=== PATIENT | male | born 1990 | race Two or more races ===

== ENCOUNTER 2025-09-04 22:17 | Inpatient (IN) | payer OTHER ==
[~2025-09-04] VITALS: Ht 180.3 cm; Wt 88.0 kg
[2025-09-04 22:20] VITALS: RESP 32; O2SAT 92
--- NOTE | 2025-09-04 22:23 | ED.PDOC ---
SOB-HPI HPI Comments 35-year-old male who came to ER via EMS for shortness of breath. Patient does have history of asthma. Patient recently exposed to family member with rhinovirus. About a hour ago, patient started having shortness of breath and wheezing. Patient had 4 breathing treatments at home, and paramedics gave him another treatment while in with the emergency room. Saturating 72% on room air on scene. After 5 breathing treatments, patient is saturating 93% at 15 L/min Chief Complaint: Shortness of breath Time Seen by MD: 22:23 Reviewed notes: Video Tape Editor Notes Information Source: Patient, Emergency Med Personnel Mode of Arrival: EMS Severity: Moderate Past Medical History PAST MEDICAL HISTORY: Asthma Surgical History: Denies all surgeries Family History Family History: Reviewed,noncontributory to illness Social History Smoker: Non-Smoker Alcohol: Denies ETOH Use Drugs: Denies Drug Use Lives In: Home Constitutional: denies: chills, diaphoresis, fatigue, fever, malaise, sweats, weakness, others EENTM: denies: blurred vision, double vision, ear bleeding, ear discharge, ear drainage, ear pain, ear ringing, eye pain, eye redness, hearing loss, mouth pain, mouth swelling, nasal discharge, nose bleeding, nose congestion, nose pain, photophobia, tearing, throat pain, throat swelling, voice changes, others Respiratory: reports: SOB at rest, shortness of breath, wheezing; denies: cough, hemoptysis, orthopnea, SOB with excertion, stridor, others Cardiovascular: denies: chest pain, dizzy spells, diaphoresis, Dyspnea on exertion, edema, irregular heart beat, left arm pain, lightheadedness, palpitations, PND, syncope, others Gastrointestinal: denies: abdomen distended, abdominal pain, blood streaked bowels, constipated, diarrhea, dysphagia, difficulty swallowing, hematemesis, melena, nausea, poor appetite, poor fluid intake, rectal bleeding, rectal pain, vomiting, others Genitourinary: denies: burning, dysuria, flank pain, frequency, hematuria, incontinence, penile discharge, penile sore, pain, testicle pain, testicle swelling, urgency, others Neurological: denies: dizziness, fainting, headache, left sided numbness, left sided weakness, numbness, paresthesia, pre-existing deficit, right sided numbness, right sided weakness, seizure, speech problems, tingling, tremors, weakness, others Musculoskeletal: denies: back pain, gout, joint pain, joint swelling, muscle pain, muscle stiffness, neck pain, others Integumetry: denies: bruises, change in color, change in hair/nails, dryness, laceration, lesions, lumps, rash, wounds, others Allergic/Immunocompromised: denies: Difficulty Healing, Frequent Infections, Hives, Itching, others Hematologic/Lymphatic: denies: anemia, blood clots, easy bleeding, easy bruising, swollen glands, others Endocrine: denies: excessive hunger, excessive sweating, excessive thirst, excessive urination, flushing, intolerance to cold, intolerance to heat, unexplained weight gain, unexplained weight loss, others Psychiatric: denies: anxiety, bipolar disorder, depression, hopeless, panic disorder, schizophrenia, sleepless, suicidal, others Physical Exam General Appearance: Moderate Distress, Normal HEENT: Normal ENT Inspection, Pharynx Normal, TMs Normal Neck: Full Range of Motion, Non-Tender, Normal, Normal Inspection Respiratory: Accessory Muscle Use, Chest Non-Tender, Respiratory Distress, Wheezing Cardiovascular: No Edema, No JVD, No Murmur, No Gallop, Normal Peripheral Pulses, Regular Rate/Rhythm Breast Exam: Deferred Gastrointestinal: No Organomegaly, Non Tender, No Pulsatile Mass, Normal Bowel Sounds, Soft Genitalia: Deferred Pelvic: Deferred Rectal: Deferred Extremities: No calf tenderness, Normal capillary refill, Normal inspection, Normal range of motion, Non-tender, No pedal edema Musculoskeletal : Apperance: Normal Neurologic: Alert, bull rider II-XII nml as Tested, No Motor Deficits, Normal Affect, Normal Mood, No Sensory Deficits Cerebellar Function: Normal Reflexes: Normal Skin: Dry, Normal Color, Warm Lymphatic: No Adenopathy Was a procedure done? Was a procedure done?: No Differential Dx Differential Diagnosis: Anxiety, Asthma, Bronchitis, Pneumonia, Respiratory Distress, URI X-Ray, Labs, Meds, VS Vital Signs Date Time Temp Pulse Resp B/P (MAP) Pulse Ox O2 Delivery O2 Flow Rate FiO2 09/05/25 00:26 111 19 135/75 (95) 96 09/04/25 23:47 98.7 09/04/25 23:00 98.7 122 24 135/75 (95) 94 98.7 09/04/25 22:47 100.4 09/04/25 22:29 28 100 Non-Rebreather 15 N/A 09/04/25 22:20 32 92 Non-Rebreather 15 N/A 09/04/25 22:20 100.4 74 23 129/81 86 100.4 09/04/25 22:18 100.4 118 32 129/81 (97) 99 100.4 Lab Test 09/05/25 00:40 09/04/25 23:25 09/04/25 22:54 09/04/25 22:53 Range/Units Lactic Acid Level Pending Troponin I High Sensitivity 11 </=54 ng/L Influenza Type A Antigen Negative Negative Influenza Type B Antigen Negative Negative SARS-CoV-2 Antigen (Rapid) Negative NEGATIVE Test 09/04/25 22:36 09/04/25 22:22 Range/Units Blood Gas Specimen Type Venous Blood Gas Sample Site Vbg - n/a Blood Gas Patient Temperature 37.0 Arterial Blood Date Drawn [id number] Marcelo Test N/a Venous Blood pH 7.343 7.320-7.430 Venous Blood pCO2 at Patient Temp 50.0 38.0-54.0 mmHg Venous Blood pO2 at Patient Temp 53.2 H 23.0-48.0 mmHg Venous Blood HCO3 26.6 22.0-29.0 mmol/L Venous Blood Base Excess 0.1 -2.0-3.0 mmol/L Blood Gas Liter Flow 15.00 Blood Gas Modality Mask - nrb FiO2 % 100.0 White Blood Count 35.4 *H 4.4-10.8 10^3/uL Red Blood Count 4.91 4.5-5.90 10^6/uL Hemoglobin 15.3 13.5-17.5 g/dL Hematocrit 45.1 41.0-53.0 % Mean Corpuscular Volume 91.8 80.0-100.0 fL Mean Corpuscular Hemoglobin 31.2 28.0-32.0 pg Mean Corpuscular Hemoglobin Concent 34.0 32.0-36.0 g/dL Red Cell Distribution Width 13.6 11.8-14.3 % Platelet Count 375 140-450 10^3/uL Mean Platelet Volume 7.5 6.9-10.8 fL Neutrophils (%) (Auto) 37.0-80.0 % Lymphocytes (%) (Auto) 10.0-50.0 % Monocytes (%) (Auto) 0.0-12.0 % Basophils (%) (Auto) 0.0-2.0 % Neutrophils # (Auto) 1.6-8.6 10 ^3/uL Lymphocytes # (Auto) 0.4-5.4 10 ^3/uL Monocytes # (Auto) 0-1.3 10 ^3/uL Differential Total Cells Counted 100.0 100 Neutrophils % (Manual) 24 L 37.0-80.0 Band Neutrophils % (Manual) 0 Lymphocytes % (Manual) 7 L 10.0-50.0 Monocytes % (Manual) 4 0-12 Eosinophils % (Manual) 63 H 0-7 Basophils % (Manual) 0 0.0-2.0 Metamyelocytes % (manual) 0 Myelocytes % (Manual) 0 Promyelocytes % (Manual) 0 Blast Cells % (Manual) 0 Reactive Lymphocytes 2 Platelet Estimate Adequate Sodium Level 141 136-145 mmol/L Potassium Level 3.7 3.5-5.1 mmol/L Chloride Level 103 98-107 mmol/L Carbon Dioxide Level 27 20-31 mmol/L Anion Gap 11 5-15 Blood Urea Nitrogen 10 9-23 mg/dL Creatinine 1.01 0.700-1.30 mg/dL Glomerular Filtration Rate Calc 100 >90 mL/min BUN/Creatinine Ratio 9.9 L 10.0-20.0 Serum Glucose 123 H 74-106 mg/dL Lactic Acid Level 2.1 *H 0.4-2.0 mmol/L Calcium Level 8.8 8.7-10.4 mg/dL Magnesium Level 2.0 1.6-2.6 mg/dL Total Bilirubin 0.3 0.2-1.0 mg/dL Aspartate Amino Transferase (AST) 27 13-40 U/L Alanine Aminotransferase (ALT) 25 7-40 U/L Alkaline Phosphatase 73 46-116 U/L Troponin I High Sensitivity 7 </=54 ng/L B-Type Natriuretic Peptide 10.40 0-100 pg/mL Total Protein 7.1 5.7-8.2 g/dL Albumin 4.2 3.2-4.8 g/dL Current Medications Medications (Trade) Dose Ordered Sig/Brook Route Start Time Stop Time Status Last Admin Sodium Chloride 1,000 ml @ 1,000 mls/hr Q1H ONCE IV 09/04/25 22:30 09/04/25 23:29 DC 09/04/25 22:24 Methylprednisolone Sodium Succinate (Solu Medrol) 125 mg ONCE ONCE IV 09/04/25 22:30 09/04/25 22:31 DC 09/04/25 22:24 Magnesium Sulfate/ Dextrose 100 ml @ 100 mls/hr Q1H IV 09/04/25 22:30 09/05/25 00:29 DC 09/04/25 22:46 Albuterol (Ventolin Medneb) 5 mg ONCE ONCE NEB 09/04/25 22:30 09/04/25 22:31 DC 09/04/25 22:26 Acetaminophen (Tylenol Tablet) 650 mg ONCE ONCE PO 09/04/25 22:45 09/04/25 22:46 DC 09/04/25 22:47 Sodium Chloride 2,250 ml @ 2,250 mls/hr ONCE ONCE IV 09/04/25 23:15 09/05/25 00:14 DC 09/04/25 23:26 Ceftriaxone Sodium 50 ml @ 100 mls/hr ONCE ONCE IV 09/04/25 23:15 09/04/25 23:44 DC 09/04/25 23:21 Azithromycin 250 ml @ 125 mls/hr ONCE ONCE IV 09/04/25 23:15 09/05/25 01:14 09/04/25 23:53 Time of 1ST Reevaluation: 22:19 Reevaluation 1ST: Unchanged Patient Education/Counseling: Diagnosis, Treatment Family Education/Counseling: No Family Present SEPSIS Sepsis Screen Physician Orders Chest Portable (09/04/25 22:32) Electrocardigram (09/04/25 22:18) Troponin-I Hs (09/05/25 01:18) Blood Culture (09/04/25 22:18) Venous Blood Gas (09/04/25 22:18) Azithromycin 500mg/250ml (Zithromax 500m (09/04/25 23:15) Vital Signs Date Time Temp Pulse Resp B/P (MAP) Pulse Ox O2 Delivery O2 Flow Rate FiO2 09/05/25 00:26 111 19 135/75 (95) 96 09/04/25 23:47 98.7 09/04/25 23:00 98.7 122 24 135/75 (95) 94 98.7 09/04/25 22:47 100.4 09/04/25 22:29 28 100 Non-Rebreather 15 N/A 09/04/25 22:20 32 92 Non-Rebreather 15 N/A 09/04/25 22:20 100.4 74 23 129/81 86 100.4 09/04/25 22:18 100.4 118 32 129/81 (97) 99 100.4 Laboratory Tests Test 09/04/25 22:22 09/05/25 00:40 Lactic Acid Level 2.1 mmol/L (0.4-2.0) *H Pending White Blood Count 35.4 10^3/uL (4.4-10.8) *H Medications Medications Dose Ordered Sig/Brook Route Start Time Stop Time Status Last Admin Dose Admin Acetaminophen 650 mg ONCE ONCE PO 09/04/25 22:45 09/04/25 22:46 DC 09/04/25 22:47 Albuterol 5 mg ONCE ONCE NEB 09/04/25 22:30 09/04/25 22:31 DC 09/04/25 22:26 Azithromycin 250 ml @ 125 mls/hr ONCE ONCE IV 09/04/25 23:15 09/05/25 01:14 09/04/25 23:53 Ceftriaxone Sodium 50 ml @ 100 mls/hr ONCE ONCE IV 09/04/25 23:15 09/04/25 23:44 DC 09/04/25 23:21 Magnesium Sulfate/ Dextrose 100 ml @ 100 mls/hr Q1H IV 09/04/25 22:30 09/05/25 00:29 DC 09/04/25 22:46 Methylprednisolone Sodium Succinate 125 mg ONCE ONCE IV 09/04/25 22:30 09/04/25 22:31 DC 09/04/25 22:24 Sodium Chloride 1,000 ml @ 1,000 mls/hr Q1H ONCE IV 09/04/25 22:30 09/04/25 23:29 DC 09/04/25 22:24 Sodium Chloride 2,250 ml @ 2,250 mls/hr ONCE ONCE IV 09/04/25 23:15 09/05/25 00:14 DC 09/04/25 23:26 Departure 1 Departure Time of Disposition: 01:06 Impression: Primary Impression: Bilateral pneumonia Additional Impressions: Respiratory failure with hypoxia Bronchospasm Disposition: ADMITTED INPATIENT Admit to: Med Surg Condition: Guarded Comments 35 yo male with severe SOB. was hypoxic on room air. wheezing bilaterally. given breathing treatments, magnesium, and solumedrol. WBC high 35. CXR shows bilateral pneumonia. patient given IV rocephin and azithromycin antibiotics. will need admission for supportive care and further workup Critical Care Note Critical Care Time?: Yes (35 min-critical care time only) Critical care comment: Shortness of breath Stability Stability form required: No Heart Score Heart Score: Heart Score Response (Comments) Value History N/A 0 EKG N/A 0 Age N/A 0 Risk Factors N/A 0 Troponin N/A 0 Total 0 I personally scribed for KIMMIE CUEVA MD ([email or web address]) on 09/04/25 at 22:23. Electronically submitted by Cristóbal Parekh ([email or web address]). KIMMIE CUEVA MD Sep 04, 2025 22:23
[2025-09-04] MEDS: methylPREDNISolone SOD SUCC 125 MG/2 ML VL IV ONE (22:24)
[2025-09-04] MEDS: SODIUM CHLORIDE 0.9% 1,000 ML IV ONE (22:24)
[2025-09-04] MEDS: ALBUTEROL SULF 2.5 MG/0.5ML(0.5%) NEB SOLN NEB ONE (22:26)
[2025-09-04] MEDS: MAGNESIUM SULFATE 1GM/100ML 100 ML IV SCH (22:34)
[2025-09-04] MEDS: ACETAMINOPHEN 325 MG TAB PO ONE (22:47)
[2025-09-04 22:50] LABS: Hematocrit 45.1 % (41.0-53.0); Hemoglobin 15.3 g/dL (13.5-17.5); Mean Corpuscular Hemoglobin 31.2 pg (28.0-32.0); Mean Corpuscular Volume 91.8 fL (80.0-100.0)
[2025-09-04 22:59] LABS: Alanine Aminotransferase 25 U/L (7-40); Alkaline Phosphatase 73 U/L (46-116); Anion Gap 11 (5-15); BUN/Creatinine Ratio 9.9 (10.0-20.0); Blood Urea Nitrogen 10 mg/dL (9-23); Calcium 8.8 mg/dL (8.7-10.4); Carbon Dioxide 27 mmol/L (20-31); Chloride 103 mmol/L (98-107); Magnesium 2.0 mg/dL (1.6-2.6); Potassium 3.7 mmol/L (3.5-5.1); Sodium 141 mmol/L (136-145); Total Protein 7.1 g/dL (5.7-8.2)
[2025-09-04 23:00] LABS: Albumin 4.2 g/dL (3.2-4.8); Bilirubin, Total 0.3 mg/dL (0.2-1.0)
[2025-09-04 23:01] LABS: Glucose 123 mg/dL (74-106)
[2025-09-04 23:02] LABS: Lactic Acid w/Reflex 2.1 mmol/L (0.4-2.0)
[2025-09-04] MEDS: SODIUM CHLORIDE 0.9% 2,250 ML IV ONE (23:26)
[2025-09-04 23:28] LABS: Total Cells Counted 100.0 (100)
[2025-09-04 23:30] LABS: COVID19 ANTIGEN SOFIA FIA NEGATIVE (NEGATIVE)
[2025-09-04] MEDS: AZITHROMYCIN 500MG/250ML 250 ML IV ONE (23:53)
[2025-09-04] MEDS: IPRATROPIUM BROM 0.5 MG/2.5ML INH SOL NEB ONE (23:54)
[2025-09-05] VITALS (20 sets, daily range): BP systolic 104–135; BP diastolic 62–80; PULSE 67–111; RESP 14–20; TEMP 97–98.7; O2SAT 91–99
[2025-09-05 01:18] LABS: Urine Protein, UAD Negative (Negative)
[2025-09-05] MEDS ORDERED: DOCUSATE SOD 100 MG CAP PO PRN (01:30)
[2025-09-05] MEDS ORDERED: NITROGLYCERIN 0.4 MG SL TAB SL PRN (01:30)
[2025-09-05] MEDS ORDERED: HYDROcodone-ACET 5/325MG TAB PO PRN (01:30)
[2025-09-05] MEDS ORDERED: MORPHINE SULFATE INJ 2 MG/ml SYRG IV PRN ×2 (01:30)
[2025-09-05] MEDS ORDERED: ACETAMINOPHEN 325 MG TAB PO PRN (01:30)
[2025-09-05] MEDS ORDERED: ONDANSETRON HCL 4 MG/2 ML VIAL IV PRN (01:30)
--- NOTE | 2025-09-05 01:43 | DVHHPRES ---
History of Present Illness Resident Creating Document: BRANDAN GRIMES RESIDENT History of Present Illness JIMMIE COLON, A 35-year-old male with a history of asthma presented to the ED via EMS for acute shortness of breath and wheezing after recent rhinovirus exposure, unrelieved by multiple home, chills, thick yellow sputum, and EMS breathing treatments, initially hypoxic at 72% on room air and now saturating 93% on 15L/min oxygen. Patient was found to have acute hypoxic respiratory failure, status asthmaticus and likely community-acquired pneumonia and presented with severe sepsis with tachycardia tachypnea and fever. Last exacerbation and hospitalization years aback when he was in teenage. PMHx: Asthma , atopy PSHx: Denies Family history: noncontributory to illness although family history of asthma and atopy present Social history: The patient is a non-smoker, denies alcohol and drug use, and lives at home. Marijuana smoker. Home Meds: None Review of Systems Constitutional: Yes: Chills, Malaise; No: Fever, Sweats, Weakness, Other Eyes: No: Pain, Vision change, Conjunctivae inflammation, Eyelid inflammation, Other, Redness ENT: No: Ear pain, Ear discharge, Nose pain, Nose discharge, Nose congestion, Mouth pain, Mouth swelling, Throat pain, Throat swelling, Other Respiratory: Cough, Shortness of breath, SOB with excertion, Wheezing, Sputum, Wheezing; No: Dry, Hemoptysis, Pleuritic Pain, Other Cardiovascular: Palpitations; No: Chest Pain, Orthopnea, Paroxysmal Noc. Dyspnea, Edema, Lt Headedness, Other Gastrointestinal: No: Nausea, Vomiting, Abdominal Pain, Diarrhea, Constipation, Melena, Hematochezia, Other Genitourinary: No Dysuria, No Frequency, No Incontinence, No Hematuria, No Re tention, No Other Musculoskeletal: No: other, neck pain, shoulder pain, arm pain, back pain, hand pain, leg pain, foot pain Skin: No: Rash, Lesions, Jaundice, Bruising, Other Neurological: No: Weakness, Numbness, Incoordination, Change in speech, Confusion, Seizures, Other Allergies: Coded Allergies: NO KNOWN ALLERGIES (Unverified , 09/04/25) Medications Current Medications Medications Dose Ordered Sig/Brook Route Start Time Stop Time Status Last Admin Dose Admin Acetaminophen/ Hydrocodone Bitart 1 tab Q4HP PRN PO 09/05/25 01:30 Ondansetron HCl 4 mg Q4HP PRN IV 09/05/25 01:30 Docusate Sodium 100 mg BIDPRN PRN PO 09/05/25 01:30 Enoxaparin Sodium 40 mg DAILY SC 09/05/25 10:00 UNV Acetaminophen 650 mg Q6HP PRN PO 09/05/25 01:30 Morphine Sulfate 2 mg Q4HPRN PRN IV 09/05/25 01:30 Nitroglycerin 0.4 mg Q5MINP PRN SL 09/05/25 01:30 Morphine Sulfate 2 mg Q30M PRN IV 09/05/25 01:30 Ceftriaxone Sodium 50 ml @ 100 mls/hr DAILY IV 09/05/25 10:00 UNV Azithromycin 250 ml @ 125 mls/hr DAILY IV 09/05/25 10:00 UNV Levalbuterol HCl 0.625 mg Q6HR NEB 09/05/25 01:45 UNV Ipratropium Mackey 0.5 mg Q6HR NEB 09/05/25 01:45 UNV Magnesium Sulfate/ Dextrose 100 ml @ 100 mls/hr Q1H IV 09/05/25 01:45 09/05/25 03:44 UNV Exam Vital Signs Vital Signs Date Time Temp Pulse Resp B/P (MAP) Pulse Ox O2 Delivery O2 Flow Rate FiO2 09/05/25 00:26 111 19 135/75 (95) 96 09/04/25 23:47 98.7 09/04/25 22:29 Non-Rebreather 15 N/A General Appearance: Alert, Oriented X3, Cooperative, mild distress HEENT: Atraumatic, PERRLA, EOMI, Other (dry mucosa) Respiratory: Other (rales and cracles, diminished breath sound in the mid and lower left lungs and right lower lungs, 4 L NC) Cardiovascular: Regular rate, Normal S1, Normal S2, No murmurs Abdominal: Normal bowel sounds, Soft, No tenderness, No hepatospenomegaly, No masses Extremities: No clubbing, No cyanosis, No edema, Normal pulses, No tenderne ss/swelling Skin: No rashes, No breakdown, No significant lesion Neuro: Normal gait, Normal speech, Strength at 5/5 X4 ext, Normal tone, Sensation intact, Cranial nerves 3-12 NL, Reflexes 2+ Psych/Mental Status: Mental status NL, Mood NL Labs/Xrays Labs Test 09/05/25 01:08 09/05/25 01:00 09/05/25 00:40 09/04/25 22:54 Range/Units Urine Color Light-yellow Yellow Urine Clarity Clear Clear Urine pH 5.5 5.0-9.0 Urine Specific [place] 1.009 1.001-1.035 Urine Protein Negative Negative Urine Ketones Negative Negative Urine Blood Negative Negative /uL Urine Nitrite Negative Negative Urine Bilirubin Negative Negative Urine Urobilinogen Normal Negative mg/dL Urine Leukocyte Esterase Negative Negative /uL Urine RBC 4 0 - 3 /hpf Urine Microscopic WBC 5 H 0-3 /HPF Urine Squamous Epithelial Cells Few <5 /hpf Urine Bacteria None seen None Seen /hpf Urine Mucus Few None Seen Urine Glucose Normal Normal mg/dL Lactic Acid Level 2.2 *H 0.4-2.0 mmol/L Influenza Type A Antigen Negative Negative Influenza Type B Antigen Negative Negative Test 09/04/25 22:53 09/04/25 22:36 09/04/25 22:22 Range/Units SARS-CoV-2 Antigen (Rapid) Negative NEGATIVE Blood Gas Specimen Type Venous Blood Gas Sample Site Vbg - n/a Blood Gas Patient Temperature 37.0 Arterial Blood Date Drawn [id number] Marcelo Test N/a Venous Blood pH 7.343 7.320-7.430 Venous Blood pCO2 at Patient Temp 50.0 38.0-54.0 mmHg Venous Blood pO2 at Patient Temp 53.2 H 23.0-48.0 mmHg Venous Blood HCO3 26.6 22.0-29.0 mmol/L Venous Blood Base Excess 0.1 -2.0-3.0 mmol/L Blood Gas Liter Flow 15.00 Blood Gas Modality Mask - nrb FiO2 % 100.0 White Blood Count 35.4 *H 4.4-10.8 10^3/uL Red Blood Count 4.91 4.5-5.90 10^6/uL Hemoglobin 15.3 13.5-17.5 g/dL Hematocrit 45.1 41.0-53.0 % Mean Corpuscular Volume 91.8 80.0-100.0 fL Mean Corpuscular Hemoglobin 31.2 28.0-32.0 pg Mean Corpuscular Hemoglobin Concent 34.0 32.0-36.0 g/dL Red Cell Distribution Width 13.6 11.8-14.3 % Platelet Count 375 140-450 10^3/uL Mean Platelet Volume 7.5 6.9-10.8 fL Neutrophils (%) (Auto) 37.0-80.0 % Lymphocytes (%) (Auto) 10.0-50.0 % Monocytes (%) (Auto) 0.0-12.0 % Basophils (%) (Auto) 0.0-2.0 % Neutrophils # (Auto) 1.6-8.6 10 ^3/uL Lymphocytes # (Auto) 0.4-5.4 10 ^3/uL Monocytes # (Auto) 0-1.3 10 ^3/uL Differential Total Cells Counted 100.0 100 Neutrophils % (Manual) 24 L 37.0-80.0 Band Neutrophils % (Manual) 0 Lymphocytes % (Manual) 7 L 10.0-50.0 Monocytes % (Manual) 4 0-12 Eosinophils % (Manual) 63 H 0-7 Basophils % (Manual) 0 0.0-2.0 Metamyelocytes % (manual) 0 Myelocytes % (Manual) 0 Promyelocytes % (Manual) 0 Blast Cells % (Manual) 0 Reactive Lymphocytes 2 Platelet Estimate Adequate Sodium Level 141 136-145 mmol/L Potassium Level 3.7 3.5-5.1 mmol/L Chloride Level 103 98-107 mmol/L Carbon Dioxide Level 27 20-31 mmol/L Anion Gap 11 5-15 Blood Urea Nitrogen 10 9-23 mg/dL Creatinine 1.01 0.700-1.30 mg/dL Glomerular Filtration Rate Calc 100 >90 mL/min BUN/Creatinine Ratio 9.9 L 10.0-20.0 Serum Glucose 123 H 74-106 mg/dL Calcium Level 8.8 8.7-10.4 mg/dL Magnesium Level 2.0 1.6-2.6 mg/dL Total Bilirubin 0.3 0.2-1.0 mg/dL Aspartate Amino Transferase (AST) 27 13-40 U/L Alanine Aminotransferase (ALT) 25 7-40 U/L Alkaline Phosphatase 73 46-116 U/L B-Type Natriuretic Peptide 10.40 0-100 pg/mL Total Protein 7.1 5.7-8.2 g/dL Albumin 4.2 3.2-4.8 g/dL SEPSIS Sepsis Screen Date sepsis recognized/suspect: Sep 04, 2025 Time Sepsis recognized/suspect: 2219 Recent Procedure: No On Antibiotic Therapy: No Respiratory Rate >20: Yes Heart Rate >90: Yes Temp<36 C (96.8 F) or >38.3 C: No SBP <90 or MAP <65 mmHG: No New Acute Mental Status Change: No Is the patient on CPAP, BIPAP,: No Physician Orders Chest Portable (09/04/25 22:32) Electrocardigram (09/04/25 22:18) Troponin-I Hs (09/05/25 01:18) Blood Culture (09/04/25:18) Venous Blood Gas (09/04/25:18) Admit (09/05/25:30) Allergies (09/05/25) Code Status (09/05/2530) Oxygen Per Hour (09/05/25:30) Hydrocodone-Acet 5/325mg Tab ([place] /32 (09/05/25:30) Ondansetron Hcl (Zofran) (09/05/25:30) Docusate Sodium Capsule (Colace Capsule) (09/05/25:30) Enoxaparin Sodium (Lovenox) (09/05/25 10:00) Complete Blood Count (09/06/25 04:00) Comprehensive Metabolic Panel (09/06/25 04:00) Npo (Nothing By Mouth) Diet (09/05/25 Breakfast) Echo 2d Mode Cardiac Dop (09/05/25:30) Condition: Critical (09/05/25:30) Acetaminophen Tablet (Tylenol Tablet) (09/05/25 01:30) Morphine Sulfate Injection (09/05/25:30) Nitroglycerin Sublingual (Ntrostat Subli (09/05/25:30) Morphine Sulfate Injection (09/05/25:30) Oxygen By Nasal Cannula (09/05/25:30) Stat Ekg For Chest Pain (09/05/25:30) Notify Md Of Changes From Base (09/05/25 01:30) Interactive Graphic Designer For 24 Hours (09/05/25:30) Emergency Dysrhythmia Protocol (12/14/25 01:30) Rhythm Strips Once Every Shift (09/05/25 01:30) Pantoprazole (Protonix) (09/05/25 01:45) Respiratory Culture W/ Gs (09/05/25 01:32) Mrsa Screen (09/05/25 01:32) Blood Culture (09/05/25 01:32) Ceftriaxone 1gm/50ml (Rocephin) (09/05/25 10:00) Azithromycin 500mg/250ml (Zithromax 500m (09/05/25 10:00) Levalbuterol Hcl (Xopenex Medneb) (09/05/25 01:45) Ipratropium Medneb (Atrovent Medneb) (09/05/25 01:45) *Consult (09/05/25 01:32) Drug Screen (09/05/25 01:36) D-Dimer (09/05/25 01:37) Magnesium Sulfate 1gm/100ml (09/05/25 01:45) Diphenhydramine Injection (Benadryl Inje (09/05/25 01:45) Vital Signs Date Time Temp Pulse Resp B/P (MAP) Pulse Ox O2 Delivery O2 Flow Rate FiO2 09/05/25 00:26 111 19 135/75 (95) 96 09/04/25 23:47 98.7 09/04/25 23:00 98.7 122 24 135/75 (95) 94 98.7 09/04/25 22:47 100.4 09/04/25 22:29 28 100 Non-Rebreather 15 N/A 09/04/25 22:20 32 92 Non-Rebreather 15 N/A 09/04/25 22:20 100.4 74 23 129/81 86 100.4 09/04/25 22:18 100.4 118 32 129/81 (97) 99 100.4 Laboratory Tests Test 09/04/25 22:22 09/05/25 00:40 Lactic Acid Level 2.1 mmol/L (0.4-2.0) *H 2.2 mmol/L (0.4-2.0) *H White Blood Count 35.4 10^3/uL (4.4-10.8) *H Medications Medications Dose Ordered Sig/Brook Route Start Time Stop Time Status Last Admin Dose Admin Acetaminophen 650 mg ONCE ONCE PO 09/04/25 22:45 09/04/25 22:46 DC 09/04/25 22:47 650 MG Albuterol 5 mg ONCE ONCE NEB 09/04/25 22:30 09/04/25 22:31 DC 09/04/25 22:26 5 MG Azithromycin 250 ml @ 125 mls/hr ONCE ONCE IV 09/04/25 23:15 09/05/25 01:14 DC 09/04/25 23:53 125 MLS/HR Ceftriaxone Sodium 50 ml @ 100 mls/hr ONCE ONCE IV 09/04/25 23:15 09/04/25 23:44 DC 09/04/25 23:21 100 MLS/HR Magnesium Sulfate/ Dextrose 100 ml @ 100 mls/hr Q1H IV 09/04/25 22:30 09/05/25 00:29 DC 09/04/25 22:46 100 MLS/HR Methylprednisolone Sodium Succinate 125 mg ONCE ONCE IV 09/04/25 22:30 09/04/25 22:31 DC 09/04/25 22:24 125 MG Sodium Chloride 1,000 ml @ 1,000 mls/hr Q1H ONCE IV 09/04/25 22:30 09/04/25 23:29 DC 09/04/25 22:24 1,000 MLS/HR Sodium Chloride 2,250 ml @ 2,250 mls/hr ONCE ONCE IV 09/04/25 23:15 09/05/25 00:14 DC 09/04/25 23:26 2,250 MLS/HR Assessment/Plan Assessment/Plan #status asthmaticus: Severe episode of exacerbation, underlying trigger to find, workup in progress. IV prednisolone, duo nebs, IV antibiotics, IV magnesium to continue. #acute hypoxic respiratory failure: Target SpO2 94% or more, close monitoring, high chance of decompensation, close follow up with humidified oxygen to continue. #likely community-acquired pneumonia: Gram-positive, Gram-negative/ atypical, check viral panel, COVID, CXR to check, sputum culture, empiric treatment to continue. check MRSA, repeat CXR if status changes. #Severe Sepsis: Lactic acid was positive, blood culture, sputum culture, IV fluid, echo, BNP, troponin to check. Ruled out other sources of infection with urinalysis, IV antibiotics to continue. Trend lactate. PUD prophylaxis: protonix 40mg IV daily to continue DVT prophylaxis: Levonox 40mg to continue SC. Barriers to discharge: Medical diagnosis and management in progress. Patient lives with family. Independent for ADL. PCP: None, animal care worker consult done to establish primary care physician outpatient aguiar. Specialist Relevant To Admission: Pulmonology, consulted given massive eosinophilia might need outpatient follow up with biologics. Case discussed with Dr. Lai. Code Status: Full Code. Discussion for goals of care and care planning needed total 27 minutes bedside. Plan discussed with: Patient My Orders Orders - BRANDAN GRIMES RESIDENT Procedure Category Date Status Time Admit ADMIT 09/05/25 Transmitted 01:30 Allergies SADAF 09/05/25 In Process 01:30 Code Status CODE 09/05/25 Transmitted 01:30 Oxygen Per Hour RT 09/05/25 Transmitted 01:30 Hydrocodone-Acet PHA 09/05/25 In Process 5/325mg Tab ([place] 01:30 Ondansetron Hcl PHA 09/05/25 In Process (Zofran) 01:30 Docusate Sodium PHA 09/05/25 In Process Capsule (Colace 01:30 Enoxaparin Sodium PHA 09/05/25 Logged (Lovenox) 10:00 Complete Blood Count LAB 09/06/25 Verified 04:00 Comprehensive LAB 09/06/25 Verified Metabolic Panel 04:00 Npo (Nothing By DIET 09/05/25 Transmitted Mouth) Diet Breakfast Echo 2d Mode Cardiac US 09/05/25 Logged DOP 01:30 Condition: Critical SADAF 09/05/25 In Process 01:30 Acetaminophen Tablet PHA 09/05/25 In Process (Tylenol Tablet) 01:30 Morphine Sulfate PHA 09/05/25 In Process Injection 01:30 Nitroglycerin PHA 09/05/25 In Process Sublingual (Ntrostat 01:30 Morphine Sulfate PHA 09/05/25 In Process Injection 01:30 Oxygen By Nasal RT 09/05/25 Transmitted Cannula 01:30 Stat Ekg For Chest SADAF 09/05/25 In Process Pain 01:30 Notify Md Of Changes SADAF 09/05/25 In Process From Base 01:30 Interactive Graphic Designer For SADAF 09/05/25 In Process 24 Hours 01:30 Emergency Dysrhythmia SADAF 09/05/25 In Process Protocol 01:30 Rhythm Strips Once SADAF 09/05/25 In Process Every Shift 01:30 Pantoprazole PHA 09/05/25 Logged (Protonix) 01:45 Respiratory Culture STEPHON 09/05/25 Logged W/ Gs 01:32 Mrsa Screen STEPHON 09/05/25 Logged 01:32 Blood Culture STEPHON 09/05/25 Logged 01:32 Ceftriaxone 1gm/50ml PHA 09/05/25 Logged (Rocephin) 10:00 Azithromycin PHA 09/05/25 Logged 500mg/250ml 10:00 Levalbuterol Hcl PHA 09/05/25 Logged (Xopenex Medneb) 01:45 Ipratropium Medneb PHA 09/05/25 Logged (Atrovent Medneb) 01:45 *Consult CONS 09/05/25 Transmitted 01:32 Drug Screen LAB 09/05/25 Logged 01:36 D-Dimer LAB 09/05/25 Logged 01:37 Magnesium Sulfate PHA 09/05/25 Logged 1gm/100ml 01:45 Diphenhydramine PHA 09/05/25 Logged Injection (Benadryl 01:45 Date of Service: Sep 05, 2025 Billing Provider: JA LAI MD Common Visit Codes: [id number] INP/OBS CARE (HIGH) Secondary Visit Codes: [id number] CARE PLAN 30 MINUTES BRANDAN GRIMES Sep 05, 2025 01:43
[2025-09-05] MEDS: MAGNESIUM SULFATE 1GM/100ML 100 ML IV SCH (01:45)
[2025-09-05 02:05] LABS: Cannabinoid Screen, Urine Pos (NEGATIVE)
[2025-09-05] MEDS: LEVALBUTEROL HCL 1.25 MG/3 ML NEB NEB SCH (02:07)
[2025-09-05] MEDS: IPRATROPIUM BROM 0.5 MG/2.5ML INH SOL NEB SCH (02:07)
[2025-09-05 02:09] LABS: Amphetamine Screen, Urine Neg (NEGATIVE); Barbiturate Scree,Urine Neg (NEGATIVE); Benzodiazephine Screen, Urine Neg (NEGATIVE); Cocaine Screen, Urine Neg (NEGATIVE); Opiate Scree,Urine Neg (NEGATIVE); Phencyclidine Screen, Urine Neg (NEGATIVE)
[2025-09-05] MEDS: PANTOPRAZOLE 40 MG/10 ML VIAL INJ IV ONE (02:17)
[2025-09-05] MEDS: diphenhydrAMINE HCL 50 MG/1 ML VL IM ONE (02:17)
[2025-09-05] MEDS: LACTATED RINGER'S 1,000 ML IV ONE (02:18)
--- NOTE | 2025-09-05 02:24 | DVH ---
CLINICAL HISTORY: SOB. TECHNIQUE: Two frontal views of the chest were obtained. COMPARISON: None available. FINDINGS: Lungs: Large consolidations of the right upper lung zone and left [id number] lung zone. Pleura: No pneumothorax or pleural effusion. Cardiomediastinal silhouette: Normal in size. Bones: No acute osseous abnormality. Imaged Upper Abdomen: Unremarkable. IMPRESSION: Large consolidations of the right upper lung zone and left [id number] lung zone, which is consistent with multifocal pneumonia. Attention on interval chest imaging follow-up to resolution.
[2025-09-05] MEDS ORDERED: ALBUAER3 IN (04:07)
[2025-09-05 08:58] LABS: Hematocrit 40.8 % (41.0-53.0); Hemoglobin 13.8 g/dL (13.5-17.5); Mean Corpuscular Hemoglobin 30.9 pg (28.0-32.0); Mean Corpuscular Volume 91.7 fL (80.0-100.0); Nucleated Red Blood Cells % 0.1 %
[2025-09-05] MEDS: diphenhydrAMINE HCL 50 MG/1 ML VL IV SCH (09:49)
[2025-09-05] MEDS: ENOXAPARIN SOD 40 MG/0.4 ML SYRINGE SC SCH (09:49)
[2025-09-05] MEDS: AZITHROMYCIN 500MG/250ML 250 ML IV SCH (09:50)
[2025-09-05] MEDS: AZITHROMYCIN 250 MG TAB PO ONE (13:16)
[2025-09-05] MEDS: methylPREDNISolone SOD SUCC 40 MG/ML VL IV SCH (13:16)
--- NOTE | 2025-09-05 14:00 | DVHINCON2 ---
Date of service: Sep 05, [address] Delgadillo Reason for Consultation Asthma exacerbation History of Present Illness A 35-year-old man with past medical history of asthma who presented to the ED via EMS on 09/04/25 with c/o acute shortness of breath and wheezing after recent rhinovirus exposure, unrelieved by multiple home remedies. Patient with associated fever, chills, thick yellow phlegm production. EMS administered breathing treatments. He was initially hypoxic at 72% on room air and subsequently sats improved to 93% on 15 LPM oxygen. Patient was diagnosed with acute hypoxic respiratory failure, status asthmaticus and likely community- acquired pneumonia and presented with severe sepsis with tachycardia, tachypnea and fever. Reports last exacerbation and hospitalization was years back when he was in teenage years. Patient was admitted for further care. Pulmonary consultation is requested for evaluation and management of asthma exacerbation and acute hypoxic respiratory failure. Review of Systems: 14-point review of systems negative unless otherwise noted above. Past Medical History: Asthma, atopy Past Surgical History: Denies Medications: Reviewed. Allergies: No known drug allergies. Family History: Positive family history of asthma and atopy, DM, HTN, hypercholesterolemia. Social History: Nonsmoker. No alcohol use. Patient smokes marijuana. Family History: Diabetes mellitus G8 FATHER, Hypercholesterolemia 19 CHILD Hypertension G8 FATHER, 19 CHILD Allergies: Coded Allergies: NO KNOWN ALLERGIES (Unverified , 09/04/25) Home Meds Reported Medications Albuterol Sulfate (VENTOLIN MDI) 90 Mcg Ih, 90 MCG IN TID, INH 09/05/25 Current Medications Current Medications Medications (Trade) Dose Ordered Sig/Brook Route PRN Reason Start Time Stop Time Status Last Admin Magnesium Sulfate/ Dextrose 100 ml @ 100 mls/hr Q1H IV 09/04/25 22:30 09/05/25 00:29 DC 09/04/25 22:46 Acetaminophen/ Hydrocodone Bitart ([place] 5/325MG Tab) 1 tab Q4HP PRN PO MODERATE PAIN (4-6 PAIN SCALE) 09/05/25 01:30 Ondansetron HCl (Zofran) 4 mg Q4HP PRN IV NAUSEA / VOMITING 09/05/25 01:30 Docusate Sodium (Colace Capsule) 100 mg BIDPRN PRN PO FOR CONSTIPATION 09/05/25 01:30 Enoxaparin Sodium (Lovenox) 40 mg DAILY SC 09/05/25 10:00 09/05/25 09:49 Acetaminophen (Tylenol Tablet) 650 mg Q6HP PRN PO PAIN SCALE 1-3 OR TEMP>100.4 09/05/25 01:30 Morphine Sulfate 2 mg Q4HPRN PRN IV SEVERE PAIN (7-10 PAIN SCALE) 09/05/25 01:30 Nitroglycerin (Ntrostat Sublingual) 0.4 mg Q5MINP PRN SL FOR CHEST PAIN 09/05/25 01:30 Morphine Sulfate 2 mg Q30M PRN IV FOR CHEST PAIN 09/05/25 01:30 Ceftriaxone Sodium 50 ml @ 100 mls/hr DAILY IV 09/05/25 10:00 09/05/25 09:48 Azithromycin 250 ml @ 125 mls/hr DAILY IV 09/05/25 10:00 09/05/25 12:34 DC Levalbuterol HCl (Xopenex Medneb) 0.625 mg Q6HR NEB 09/05/25 01:45 09/05/25 11:38 Ipratropium [place] (Atrovent Medneb) 0.5 mg Q6HR NEB 09/05/25 01:45 09/05/25 11:38 Magnesium Sulfate/ Dextrose 100 ml @ 100 mls/hr Q1H IV 09/05/25 01:45 09/05/25 03:44 DC Methylprednisolone Sodium Succinate (Solu Medrol) 40 mg BID IV 09/05/25 22:00 09/05/25 12:25 DC Diphenhydramine HCl (Benadryl Injection) 25 mg DAILY IV 09/05/25 10:00 09/05/25 09:49 Ipratropium [place] (Atrovent Medneb) 0.5 mg Q4HPRN PRN NEB SHORTNESS OF BREATH 09/05/25 12:30 Methylprednisolone Sodium Succinate (Solu Medrol) 60 mg BID IV 09/05/25 22:00 09/05/25 12:27 DC Methylprednisolone Sodium Succinate (Solu Medrol) 60 mg Q8HR IV 09/05/25 14:00 09/05/25 13:16 Azithromycin (Zithromax Tablet) 500 mg DAILY PO 09/06/25 10:00 Vital Signs Vital Signs Date Time Temp Pulse Resp B/P (MAP) Pulse Ox O2 Delivery O2 Flow Rate FiO2 09/05/25 12:18 98.0 82 16 113/65 (81) 95 98.0 09/05/25 10:00 Nasal Cannula* 2 28 Physical Exam Gen.: Patient lying in bed in no apparent distress. On supplemental oxygen. Head: Normocephalic, atraumatic. Eyes: EOMI/PERRLA. Ears: Normal hearing. Normal anatomy. Neck/trachea: Trachea midline, supple. Nose: Normal external anatomy. Mouth: Moist mucous membranes. Chest: Decreased air entry bilaterally. No wheezing or rhonchi. Cardiovascular: Positive S1, positive S2. Regular rate and rhythm. Abdomen: Positive bowel sounds in all 4 quadrants. Soft, non-tender, non- distended. : Deferred. Rectal: Deferred. Skin: Warm, dry. Intact. Extremities: 2+ radial pulses bilaterally. No lower extremity edema. Neuro: Awake, alert, oriented x3. No gross motor or sensory deficits. Cranial nerves II through XII intact. Gait not assessed. Labs/Diagnostic Data Labs Test 09/05/25 08:31 09/05/25 01:08 09/05/25 01:00 09/04/25 22:54 Range/Units White Blood Count 10.6 # 4.4-10.8 10^3/uL Red Blood Count 4.45 L 4.5-5.90 10^6/uL Hemoglobin 13.8 13.5-17.5 g/dL Hematocrit 40.8 L 41.0-53.0 % Mean Corpuscular Volume 91.7 80.0-100.0 fL Mean Corpuscular Hemoglobin 30.9 28.0-32.0 pg Mean Corpuscular Hemoglobin Concent 33.7 32.0-36.0 g/dL Red Cell Distribution Width 13.6 11.8-14.3 % Platelet Count 342 140-450 10^3/uL Mean Platelet Volume 7.6 6.9-10.8 fL Neutrophils (%) (Auto) 74.2 37.0-80.0 % Lymphocytes (%) (Auto) 12.1 10.0-50.0 % Monocytes (%) (Auto) 2.9 0.0-12.0 % Eosinophils (%) (Auto) 10.4 H 0.0-7.0 % Basophils (%) (Auto) 0.4 0.0-2.0 % Neutrophils # (Auto) 7.9 1.6-8.6 10 ^3/uL Lymphocytes # (Auto) 1.3 0.4-5.4 10 ^3/uL Monocytes # (Auto) 0.3 0-1.3 10 ^3/uL Eosinophils # (Auto) 1.1 H 0-0.8 10 ^3/uL Basophils # (Auto) 0 0-0.2 10 ^3/uL Nucleated Red Blood Cells 0.1 % Lactic Acid Level 2.0 0.4-2.0 mmol/L Troponin I High Sensitivity 19 </=54 ng/L Urine Color Light-yellow Yellow Urine Clarity Clear Clear Urine pH 5.5 5.0-9.0 Urine Specific [place] 1.009 1.001-1.035 Urine Protein Negative Negative Urine Ketones Negative Negative Urine Blood Negative Negative /uL Urine Nitrite Negative Negative Urine Bilirubin Negative Negative Urine Urobilinogen Normal Negative mg/dL Urine Leukocyte Esterase Negative Negative /uL Urine RBC 4 0 - 3 /hpf Urine Microscopic WBC 5 H 0-3 /HPF Urine Squamous Epithelial Cells Few <5 /hpf Urine Bacteria None seen None Seen /hpf Urine Mucus Few None Seen Urine Glucose Normal Normal mg/dL Urine Opiates Screen Neg NEGATIVE Urine Fentanyl Screen Neg NEGATIVE Urine Barbiturates Screen Neg NEGATIVE Urine Phencyclidine Screen Neg NEGATIVE Urine Amphetamines Screen Neg NEGATIVE Urine Benzodiazepines Screen Neg NEGATIVE Urine Cocaine Screen Neg NEGATIVE Urine Cannabinoids Screen Pos NEGATIVE Influenza Type A Antigen Negative Negative Influenza Type B Antigen Negative Negative Test 09/04/25 22:53 09/04/25 22:36 09/04/25 22:22 Range/Units SARS-CoV-2 Antigen (Rapid) Negative NEGATIVE Blood Gas Specimen Type Venous Blood Gas Sample Site Vbg - n/a Blood Gas Patient Temperature 37.0 Arterial Blood Date Drawn [id number] Marcelo Test N/a Venous Blood pH 7.343 7.320-7.430 Venous Blood pCO2 at Patient Temp 50.0 38.0-54.0 mmHg Venous Blood pO2 at Patient Temp 53.2 H 23.0-48.0 mmHg Venous Blood HCO3 26.6 22.0-29.0 mmol/L Venous Blood Base Excess 0.1 -2.0-3.0 mmol/L Blood Gas Liter Flow 15.00 Blood Gas Modality Mask - nrb FiO2 % 100.0 Differential Total Cells Counted 100.0 100 Neutrophils % (Manual) 24 L 37.0-80.0 Band Neutrophils % (Manual) 0 Lymphocytes % (Manual) 7 L 10.0-50.0 Monocytes % (Manual) 4 0-12 Eosinophils % (Manual) 63 H 0-7 Basophils % (Manual) 0 0.0-2.0 Metamyelocytes % (manual) 0 Myelocytes % (Manual) 0 Promyelocytes % (Manual) 0 Blast Cells % (Manual) 0 Reactive Lymphocytes 2 Platelet Estimate Adequate D-Dimer, Quantitative 1.51 H 0.0-0.49 mg/L FEU Sodium Level 141 136-145 mmol/L Potassium Level 3.7 3.5-5.1 mmol/L Chloride Level 103 98-107 mmol/L Carbon Dioxide Level 27 20-31 mmol/L Anion Gap 11 5-15 Blood Urea Nitrogen 10 9-23 mg/dL Creatinine 1.01 0.700-1.30 mg/dL Glomerular Filtration Rate Calc 100 >90 mL/min BUN/Creatinine Ratio 9.9 L 10.0-20.0 Serum Glucose 123 H 74-106 mg/dL Calcium Level 8.8 8.7-10.4 mg/dL Magnesium Level 2.0 1.6-2.6 mg/dL Total Bilirubin 0.3 0.2-1.0 mg/dL Aspartate Amino Transferase (AST) 27 13-40 U/L Alanine Aminotransferase (ALT) 25 7-40 U/L Alkaline Phosphatase 73 46-116 U/L B-Type Natriuretic Peptide 10.40 0-100 pg/mL Total Protein 7.1 5.7-8.2 g/dL Albumin 4.2 3.2-4.8 g/dL Assessment Impression: Acute hypoxic respiratory failure secondary to asthma exacerbation Asthma exacerbation Multifocal pneumonia likely Gram-negative Leukocytosis Eosinophilia, eosinophil count 1100 Eosinophilic asthma Lactic acidosis , resolved Elevated D-dimer Marijuana use Plan: Chest x-ray imaging report reviewed. Right upper lung and left upper lung opacities consistent with multifocal pneumonia. Supplemental oxygen , improved O2 requirements from presentation. Initially was on 15 L/min via non-rebreather. on 2 L/min via nasal cannula keep O2 saturation above 92%. ABG reviewed. Compensated. Continue IV steroids Continue bronchodilators Continue antibiotics DVT prophylaxis-Lovenox Prognosis: Guarded given multiple comorbidities. Rest of plan per hospitalist and other consultants. Thank you Dr. Delgadillo for allowing me to participate in this patient's care. Further recommendations will depend on patient's clinical course. Please do not hesitate to contact me if you have any questions or concerns. This medical document was created using an electronic medical record system with [employer] dictation system. Although this document has been carefully reviewed, there may still be some phonetic and typographical errors. These areas are purely typographical due to imperfections of the software programs, and do not reflect any compromise in the patient's medical care. Plan discussed with: Other (NEELIMA Menchaca/) Visit Coding Pulmonary Billing Provider: THEODORE MACE MD Date of Service if different f: Sep 05, 2025 Common Visit Codes: [id number] INP/OBS CARE (HIGH) THEODORE MACE MD Sep 05, 2025 14:00
--- NOTE | 2025-09-05 17:29 | DVHSR ---
APPROVED REPORT EXAM: Two-dimensional and M-mode echocardiogram with Doppler and color Doppler. Blood Pressure: 124/80 mmHg INDICATION Rule Out Structural Heart Disease DIMENSIONS LVDd 5.1 (3.8-5.7cm) LA (2D) 3.8 (1.9-4.0cm) Aortic Root 3.4 (2.0-3.7cm) LVDs 3.5 (2.5-4.0cm) LA (MM) (1.9-4.0cm) Aortic Cusp Exc 1.9 (1.5-2.0cm) EF (%) 60.0 (55-70%) Rt. Atrium 3.4 (1.9-4.0cm) Asc. Aorta cm IVSd 0.9 (0.7-1.1cm) RV (D) (1.8-2.4cm) PWd 0.9 (0.7-1.1cm) Mitral Valve Mitral Mitral Stenosis E wave 1.00m/s MV Mean GR. mmHg A wave 0.90m/s MV Peak GR. mmHg E/A ratio 1.1 2D MVA cm2 Aortic Valve Aortic Valve Aortic Stenosis V1 1.10m/s AO Mean GR. 3mmHg V2 1.20m/s AO Peak GR. 7mmHg LVOT Diameter 2.4 (1.8-2.4cm) Doppler VIRY 4.14cm2 Pulmonic Valve V2 0.90m/s Conclusion LV EF IS 70% AND IS NORMAL NORMAL RV FUNCTION NORMAL VALVES NO EFFUSION
[2025-09-05] MEDS ORDERED: methylPREDNISolone SOD SUCC 40 MG/ML VL IV SCH ×2 (22:00)
[2025-09-06] VITALS (17 sets, daily range): BP systolic 117–137; BP diastolic 69–82; PULSE 59–88; RESP 16–20; TEMP 97.5–98.2; O2SAT 94–100
[2025-09-06] MEDS: IPRATROPIUM BROM 0.5 MG/2.5ML INH SOL NEB PRN (04:51)
[2025-09-06 06:50] LABS: Hematocrit 43.0 % (41.0-53.0); Hemoglobin 14.5 g/dL (13.5-17.5); Mean Corpuscular Hemoglobin 31.1 pg (28.0-32.0); Mean Corpuscular Volume 92.0 fL (80.0-100.0); Nucleated Red Blood Cells % 0.0 %
[2025-09-06 07:15] LABS: Alanine Aminotransferase 20 U/L (7-40); Alkaline Phosphatase 72 U/L (46-116); Anion Gap 14 (5-15); BUN/Creatinine Ratio 14.4 (10.0-20.0); Blood Urea Nitrogen 16 mg/dL (9-23); Calcium 9.2 mg/dL (8.7-10.4); Carbon Dioxide 25 mmol/L (20-31); Chloride 103 mmol/L (98-107); Potassium 4.4 mmol/L (3.5-5.1); Sodium 142 mmol/L (136-145); Total Protein 7.3 g/dL (5.7-8.2)
[2025-09-06 07:16] LABS: Albumin 4.1 g/dL (3.2-4.8)
[2025-09-06 07:22] LABS: Bilirubin, Total 0.2 mg/dL (0.2-1.0); Glucose 118 mg/dL (74-106)
[2025-09-06] MEDS: AZITHROMYCIN 250 MG TAB PO SCH (08:24)
[2025-09-06] MEDS ORDERED: VANCOMYCIN PER PHARMACY 0 MG IV SCH (14:45)
--- NOTE | 2025-09-06 15:33 | DVHPN2 ---
Subjective Patient states that his breathing has improved. Reviewed: Care Plan, H&P, Labs, Medications Changes from previous H/P or p: No Changes General: Per HPI Eyes: No Pain, No Vision change, No Conjunctivae inflammation, No Eyelid inflammation, No Other, No Redness ENT: No Ear pain, No Ear discharge, No Nose pain, No Nose discharge, No Nose congestion, No Mouth pain, No Mouth swelling, No Throat pain, No Throat swelling, No Other Cardiovascular: No Chest Pain; Palpitations; No Orthopnea, No Paroxysmal Noc. Dyspnea, No Edema, No Lt Headedness, No Other Respiratory: Cough; No Dry; Shortness of breath, SOB with excertion, Wheezing; No Hemoptysis, No Pleuritic Pain; Sputum; No Other Gastrointestinal: No Nausea, No Vomiting, No Abdominal Pain, No Diarrhea, No Constipation, No Melena, No Hematochezia, No Other Genitourinary: No Dysuria, No Frequency, No Incontinence, No Hematuria, No Retention, No Other Musculoskeletal: No other, No neck pain, No shoulder pain, No arm pain, No back pain, No hand pain, No leg pain, No foot pain Skin: No Rash, No Lesions, No Jaundice, No Bruising, No Other Objective Vitals Vital Signs Date Time Temp Pulse Resp B/P (MAP) Pulse Ox O2 Delivery O2 Flow Rate FiO2 09/06/25 12:40 97.5 83 18 122/82 (95) 97 97.5 09/06/25 11:23 Nasal Cannula* 1 24 Intake/Output Intake and Output 09/06/25 07:00 Intake Total 1710 ml Balance 1710 ml Intake Oral 1660 ml IV Total 50 ml # Voids 5 General Appearance: Alert, Oriented X3, Cooperative, No acute distress HEENT: Atraumatic, PERRLA Lungs: Clear to auscultation, Normal air movement Cardiovascular: Normal S1, Normal S2 Abdomen: Normal bowel sounds Musculoskeletal: Normal sensory function, Normal motor function Extremities: No clubbing, No cyanosis Psych/Mental Status: Mental status NL, Mood NL Medications Current Medications Medications Dose Ordered Sig/Brook Route Start Time Stop Time Status Last Admin Dose Admin Acetaminophen/ Hydrocodone Bitart 1 tab Q4HP PRN PO 09/05/25 01:30 Ondansetron HCl 4 mg Q4HP PRN IV 09/05/25 01:30 Docusate Sodium 100 mg BIDPRN PRN PO 09/05/25 01:30 Enoxaparin Sodium 40 mg DAILY SC 09/05/25 10:00 09/06/25 08:25 40 MG Acetaminophen 650 mg Q6HP PRN PO 09/05/25 01:30 Morphine Sulfate 2 mg Q4HPRN PRN IV 09/05/25 01:30 Nitroglycerin 0.4 mg Q5MINP PRN SL 09/05/25 01:30 Morphine Sulfate 2 mg Q30M PRN IV 09/05/25 01:30 Levalbuterol HCl 0.625 mg Q6HR NEB 09/05/25 01:45 09/06/25 11:23 0.625 MG Ipratropium [place] 0.5 mg Q6HR NEB 09/05/25 01:45 09/06/25 11:23 0.5 MG Diphenhydramine HCl 25 mg DAILY IV 09/05/25 10:00 09/06/25 08:24 25 MG Ipratropium [place] 0.5 mg Q4HPRN PRN NEB 09/05/25 12:30 09/06/25 04:51 0.5 MG Vancomycin HCl 0 ml @ 0 mls/hr PER PHARMACY IV 09/06/25 14:45 UNV Cefepime HCl 50 ml @ 12.5 mls/hr Q8HR IV 09/06/25 22:00 UNV Laboratory Results Laboratory Tests 09/06/25 04:55 Chemistry Test 09/06/25 04:55 Albumin 4.1 g/dL (3.2-4.8) Calcium Level 9.2 mg/dL (8.7-10.4) Total Protein 7.3 g/dL (5.7-8.2) LFT Test 09/06/25 04:55 Alanine Aminotransferase (ALT) 20 U/L (7-40) Alkaline Phosphatase 72 U/L (46-116) Aspartate Amino Transferase (AST) 19 U/L (13-40) Total Bilirubin 0.2 mg/dL (0.2-1.0) Urinalysis Test 09/05/25 01:00 Urine Color Light-yellow (Yellow) Urine Clarity Clear (Clear) Urine pH 5.5 (5.0-9.0) Urine Specific [place] 1.009 (1.001-1.035) Urine Protein Negative (Negative) Urine Ketones Negative (Negative) Urine Blood Negative /uL (Negative) Urine Nitrite Negative (Negative) Urine Bilirubin Negative (Negative) Urine Urobilinogen Normal mg/dL (Negative) Urine Leukocyte Esterase Negative /uL (Negative) Urine RBC 4 /hpf (0 - 3) Urine Microscopic WBC 5 /HPF (0-3) H Urine Squamous Epithelial Cells Few /hpf (<5) Urine Bacteria None seen /hpf (None Seen) Urine Mucus Few (None Seen) Urine Glucose Normal mg/dL (Normal) Microbiology Microbiology Date/Time Source Procedure Growth Status 09/05/25 03:00 Nose MRSA Screen - Final Complete 09/04/25 22:36 Blood Blood Culture - Preliminary NO GROWTH AFTER 24 HOURS OF INCUBATION. Resulted Labs and/or images reviewed: Labs reviewed by me, Image(s) reviewed by me Assessment/Plan Assessment/Plan Impression: -acute hypoxic respiratory failure -community-acquired pneumonia, bilateral, probable Gram-positive/Gram-negative etiology -asthma with exacerbation -sepsis Plan: -change antibiotic therapy to cefepime and vancomycin -O2 supplementation to keep saturation greater than 90% -bronchodilators -repeat labs and chest x-ray in a.m. Total time spent with patient discussing and formulating plan of care: 35 minutes. This medical document was created using an electronic medical record system with [employer] dictation system. Although this document has been carefully reviewed, there may still be some phonetic and typographical errors. These areas are purely typographical due to imperfections of the software programs, and do not reflect any compromise in the patient's medical care. Plan discussed with: Patient, Other (RN) My Orders Orders - HEMALATHA CARBONE NP Procedure Category Date Status Time Vancomycin Per PHA 09/06/25 Logged Pharmacy 14:45 Cefepime 1gm/50ml PHA 09/06/25 Logged (Maxipime 1gm/50ml) 22:00 Basic Metabolic Panel LAB 09/07/25 Verified 04:00 Chest Portable XY 09/07/25 Logged 04:00 Complete Blood Count LAB 09/07/25 Verified 04:00 Date of Service: Sep 06, 2025 Billing Provider: HEMALATHA CARBONE NP Common Visit Codes: [id number] INP/OBS CARE(HIGH) HEMALATHA CARBONE NP Sep 06, 2025 15:33
[2025-09-06] MEDS: VANCOMYCIN 1GM/250ML KIT 250 ML IV SCH (17:02)
--- NOTE | 2025-09-06 21:56 | DVHPN2 ---
Subjective DOS: 09/06/2025 Patient seen and examined at bedside. Remains on supplemental oxygen Overnight events reviewed. Reviewed: Care Plan, H&P, Labs, Medications Changes from previous H/P or p: No Changes General: Per HPI Eyes: No Pain, No Vision change, No Conjunctivae inflammation, No Eyelid inflammation, No Other, No Redness ENT: No Ear pain, No Ear discharge, No Nose pain, No Nose discharge, No Nose congestion, No Mouth pain, No Mouth swelling, No Throat pain, No Throat swelling, No Other Cardiovascular: No Chest Pain; Palpitations; No Orthopnea, No Paroxysmal Noc. Dyspnea, No Edema, No Lt Headedness, No Other Respiratory: Cough; No Dry; Shortness of breath, SOB with excertion, Wheezing; No Hemoptysis, No Pleuritic Pain; Sputum; No Other Gastrointestinal: No Nausea, No Vomiting, No Abdominal Pain, No Diarrhea, No Constipation, No Melena, No Hematochezia, No Other Genitourinary: No Dysuria, No Frequency, No Incontinence, No Hematuria, No Retention, No Other Musculoskeletal: No other, No neck pain, No shoulder pain, No arm pain, No back pain, No hand pain, No leg pain, No foot pain Skin: No Rash, No Lesions, No Jaundice, No Bruising, No Other Objective Vitals Vital Signs Date Time Temp Pulse Resp B/P (MAP) Pulse Ox O2 Delivery O2 Flow Rate FiO2 09/06/25 21:00 98.2 74 18 122/69 (86) 94 98.2 09/06/25 19:23 Nasal Cannula 1.0 09/06/25 19:23 24 Intake/Output Intake and Output 09/06/25 07:00 Intake Total 1710 ml Balance 1710 ml Intake Oral 1660 ml IV Total 50 ml # Voids 5 Exam Gen.: Patient lying in bed in no apparent distress. On supplemental oxygen. Head: Normocephalic, atraumatic. Eyes: EOMI/PERRLA. Ears: Normal hearing. Normal anatomy. Neck/trachea: Trachea midline, supple. Nose: Normal external anatomy. Mouth: Moist mucous membranes. Chest: Decreased air entry bilaterally. No wheezing or rhonchi. Cardiovascular: Positive S1, positive S2. Regular rate and rhythm. Abdomen: Positive bowel sounds in all 4 quadrants. Soft, non-tender, non- distended. : Deferred. Rectal: Deferred. Skin: Warm, dry. Intact. Extremities: 2+ radial pulses bilaterally. No lower extremity edema. Neuro: Awake, alert, oriented x3. No gross motor or sensory deficits. Cranial nerves II through XII intact. Gait not assessed. General Appearance: Alert, Oriented X3, Cooperative, No acute distress HEENT: Atraumatic, PERRLA Lungs: Clear to auscultation, Normal air movement Cardiovascular: Normal S1, Normal S2 Abdomen: Normal bowel sounds Musculoskeletal: Normal sensory function, Normal motor function Extremities: No clubbing, No cyanosis Psych/Mental Status: Mental status NL, Mood NL Medications Current Medications Medications Dose Ordered Sig/Brook Route Start Time Stop Time Status Last Admin Dose Admin Acetaminophen/ Hydrocodone Bitart 1 tab Q4HP PRN PO 09/05/25 01:30 Ondansetron HCl 4 mg Q4HP PRN IV 09/05/25 01:30 Docusate Sodium 100 mg BIDPRN PRN PO 09/05/25 01:30 Enoxaparin Sodium 40 mg DAILY SC 09/05/25 10:00 09/06/25 08:25 40 MG Acetaminophen 650 mg Q6HP PRN PO 09/05/25 01:30 Morphine Sulfate 2 mg Q4HPRN PRN IV 09/05/25 01:30 Nitroglycerin 0.4 mg Q5MINP PRN SL 09/05/25 01:30 Morphine Sulfate 2 mg Q30M PRN IV 09/05/25 01:30 Levalbuterol HCl 0.625 mg Q6HR NEB 09/05/25 01:45 09/06/25 19:24 0.625 MG Ipratropium [place] 0.5 mg Q6HR NEB 09/05/25 01:45 09/06/25 19:23 0.5 MG Diphenhydramine HCl 25 mg DAILY IV 09/05/25 10:00 09/06/25 08:24 25 MG Ipratropium [place] 0.5 mg Q4HPRN PRN NEB 09/05/25 12:30 09/06/25 04:51 0.5 MG Vancomycin HCl 0 ml @ 0 mls/hr PER PHARMACY IV 09/06/25 14:45 Cefepime HCl 50 ml @ 12.5 mls/hr Q8HR IV 09/06/25 22:00 Vancomycin HCl 250 ml @ 166.667 mls/hr Q12H IV 09/07/25 05:00 Laboratory Results Laboratory Tests 09/06/25 04:55 Chemistry Test 09/06/25 04:55 Albumin 4.1 g/dL (3.2-4.8) Calcium Level 9.2 mg/dL (8.7-10.4) Total Protein 7.3 g/dL (5.7-8.2) LFT Test 09/06/25 04:55 Alanine Aminotransferase (ALT) 20 U/L (7-40) Alkaline Phosphatase 72 U/L (46-116) Aspartate Amino Transferase (AST) 19 U/L (13-40) Total Bilirubin 0.2 mg/dL (0.2-1.0) Urinalysis Test 09/05/25 01:00 Urine Color Light-yellow (Yellow) Urine Clarity Clear (Clear) Urine pH 5.5 (5.0-9.0) Urine Specific [place] 1.009 (1.001-1.035) Urine Protein Negative (Negative) Urine Ketones Negative (Negative) Urine Blood Negative /uL (Negative) Urine Nitrite Negative (Negative) Urine Bilirubin Negative (Negative) Urine Urobilinogen Normal mg/dL (Negative) Urine Leukocyte Esterase Negative /uL (Negative) Urine RBC 4 /hpf (0 - 3) Urine Microscopic WBC 5 /HPF (0-3) H Urine Squamous Epithelial Cells Few /hpf (<5) Urine Bacteria None seen /hpf (None Seen) Urine Mucus Few (None Seen) Urine Glucose Normal mg/dL (Normal) Microbiology Microbiology Date/Time Source Procedure Growth Status 09/05/25 03:00 Nose MRSA Screen - Final Complete 09/04/25 22:36 Blood Blood Culture - Preliminary NO GROWTH AFTER 24 HOURS OF INCUBATION. Resulted Assessment/Plan Assessment/Plan Impression: Acute hypoxic respiratory failure secondary to asthma exacerbation Asthma exacerbation Multifocal pneumonia likely Gram-negative Leukocytosis Eosinophilia, eosinophil count 1100 Eosinophilic asthma Lactic acidosis , resolved Elevated D-dimer Marijuana use Events: Remains on supplemental oxygen, 2 LPM NC Taper O2 as tolerated Continue bronchodilators Continue IV steroids Continue antibiotics Labs and imaging reviewed. Rest of plan as noted below. Plan: Chest x-ray imaging report reviewed. Right upper lung and left upper lung opacities consistent with multifocal pneumonia. Supplemental oxygen , improved O2 requirements from presentation. Initially was on 15 L/min via non-rebreather. on 2 L/min via nasal cannula keep O2 saturation above 92%. ABG reviewed. Compensated. Continue IV steroids Continue bronchodilators Continue antibiotics DVT prophylaxis-Lovenox Prognosis: Guarded given multiple comorbidities. Rest of plan per hospitalist and other consultants. Thank you Dr. Delgadillo for allowing me to participate in this patient's care. Further recommendations will depend on patient's clinical course. Please do not hesitate to contact me if you have any questions or concerns. This medical document was created using an electronic medical record system with [employer] dictation system. Although this document has been carefully reviewed, there may still be some phonetic and typographical errors. These areas are purely typographical due to imperfections of the software programs, and do not reflect any compromise in the patient's medical care. Plan discussed with: Patient, Other (RN) Visit Coding Pulmonary Billing Provider: THEODORE MACE MD Date of Service if different f: Sep 06, 2025 Common Visit Codes: [id number] INP/OBS CARE(HIGH) THEODORE MACE MD Sep 06, 2025 21:56
[2025-09-06] MEDS ORDERED: CEFEPIME 1GM/50ML 50 ML IV SCH (22:00)
[2025-09-06] MEDS: CEFEPIME 2GM/50ML NS 50 ML IV SCH (22:00)
[2025-09-07] VITALS (17 sets, daily range): BP systolic 118–134; BP diastolic 72–93; PULSE 64–94; RESP 16–20; TEMP 36.4; O2SAT 91–100
[2025-09-07] MEDS: VANCOMYCIN 1.5GM/250ML 250 ML IV SCH (04:55)
--- NOTE | 2025-09-07 05:39 | DVH ---
CHEST RADIOGRAPH INDICATION: pna TECHNIQUE: Single frontal view of the chest was obtained COMPARISON: XY CHEST PORTABLE on DOS: 09/04/25 FINDINGS: Lines and Tubes: None Lungs: Grossly stable appearing bilateral upper lung zone parenchymal consolidation. Pleura: No effusion. No pneumothorax. Cardiomediastinal contours: Unremarkable Bones: Unremarkable IMPRESSION: 1. Grossly stable appearing bilateral upper lung zone parenchymal consolidation.
[2025-09-07 06:35] LABS: Hematocrit 41.8 % (41.0-53.0); Hemoglobin 14.4 g/dL (13.5-17.5); Mean Corpuscular Hemoglobin 31.4 pg (28.0-32.0); Mean Corpuscular Volume 91.2 fL (80.0-100.0); Nucleated Red Blood Cells % 0.1 %
[2025-09-07 06:42] LABS: Anion Gap 11 (5-15); Carbon Dioxide 27 mmol/L (20-31); Chloride 102 mmol/L (98-107); Potassium 3.7 mmol/L (3.5-5.1); Sodium 140 mmol/L (136-145)
[2025-09-07 06:43] LABS: Calcium 9.1 mg/dL (8.7-10.4)
[2025-09-07 06:48] LABS: BUN/Creatinine Ratio 13.7 (10.0-20.0); Blood Urea Nitrogen 13 mg/dL (9-23)
[2025-09-07 06:50] LABS: Glucose 107 mg/dL (74-106)
[2025-09-07] MEDS ORDERED: BACDST PO (11:54)
[2025-09-07] MEDS ORDERED: ALBUAER3 IN (11:54)
[2025-09-07] MEDS ORDERED: PRED20TA2 PO (11:54)
--- NOTE | 2025-09-07 11:58 | DVHDS2 ---
Discharge Summary Date of Admission Sep 05, 2025 at 01:30 Date of Discharge: Sep 07, 2025 Admitting Diagnosis Asthma exacerbation Labs/Diagnostic Data: Laboratory Results Test 09/07/25 05:42 09/06/25 04:55 09/05/25 08:31 09/05/25 01:08 White Blood Count 11.4 10^3/uL (4.4-10.8) Red Blood Count 4.59 10^6/uL (4.5-5.90) Hemoglobin 14.4 g/dL (13.5-17.5) Hematocrit 41.8 % (41.0-53.0) Mean Corpuscular Volume 91.2 fL (80.0-100.0) Mean Corpuscular Hemoglobin 31.4 pg (28.0-32.0) Mean Corpuscular Hemoglobin Concent 34.4 g/dL (32.0-36.0) Red Cell Distribution Width 13.8 % (11.8-14.3) Platelet Count 357 10^3/uL (140-450) Mean Platelet Volume 7.3 fL (6.9-10.8) Neutrophils (%) (Auto) 74.4 % (37.0-80.0) Lymphocytes (%) (Auto) 15.9 % (10.0-50.0) Monocytes (%) (Auto) 7.3 % (0.0-12.0) Eosinophils (%) (Auto) 2.2 % (0.0-7.0) Basophils (%) (Auto) 0.2 % (0.0-2.0) Neutrophils # (Auto) 8.5 10 ^3/uL (1.6-8.6) Lymphocytes # (Auto) 1.8 10 ^3/uL (0.4-5.4) Monocytes # (Auto) 0.8 10 ^3/uL (0-1.3) Eosinophils # (Auto) 0.3 10 ^3/uL (0-0.8) Basophils # (Auto) 0 10 ^3/uL (0-0.2) Nucleated Red Blood Cells 0.1 % Sodium Level 140 mmol/L (136-145) Potassium Level 3.7 mmol/L (3.5-5.1) Chloride Level 102 mmol/L (98-107) Carbon Dioxide Level 27 mmol/L (20-31) Anion Gap 11 (5-15) Blood Urea Nitrogen 13 mg/dL (9-23) Creatinine 0.95 mg/dL (0.700-1.30) Glomerular Filtration Rate Calc 108 mL/min (>90) BUN/Creatinine Ratio 13.7 (10.0-20.0) Serum Glucose 107 mg/dL (74-106) Calcium Level 9.1 mg/dL (8.7-10.4) Total Bilirubin 0.2 mg/dL (0.2-1.0) Aspartate Amino Transferase (AST) 19 U/L (13-40) Alanine Aminotransferase (ALT) 20 U/L (7-40) Alkaline Phosphatase 72 U/L (46-116) Total Protein 7.3 g/dL (5.7-8.2) Albumin 4.1 g/dL (3.2-4.8) Lactic Acid Level 2.0 mmol/L (0.4-2.0) Troponin I High Sensitivity 19 ng/L (</=54) Test 09/05/25 01:00 09/04/25 22:54 09/04/25 22:53 09/04/25 22:36 Urine Color Light-yellow (Yellow) Urine Clarity Clear (Clear) Urine pH 5.5 (5.0-9.0) Urine Specific [place] 1.009 (1.001-1.035) Urine Protein Negative (Negative) Urine Ketones Negative (Negative) Urine Blood Negative /uL (Negative) Urine Nitrite Negative (Negative) Urine Bilirubin Negative (Negative) Urine Urobilinogen Normal mg/dL (Negative) Urine Leukocyte Esterase Negative /uL (Negative) Urine RBC 4 /hpf (0 - 3) Urine Microscopic WBC 5 /HPF (0-3) Urine Squamous Epithelial Cells Few /hpf (<5) Urine Bacteria None seen /hpf (None Seen) Urine Mucus Few (None Seen) Urine Glucose Normal mg/dL (Normal) Urine Opiates Screen Neg (NEGATIVE) Urine Fentanyl Screen Neg (NEGATIVE) Urine Barbiturates Screen Neg (NEGATIVE) Urine Phencyclidine Screen Neg (NEGATIVE) Urine Amphetamines Screen Neg (NEGATIVE) Urine Benzodiazepines Screen Neg (NEGATIVE) Urine Cocaine Screen Neg (NEGATIVE) Urine Cannabinoids Screen Pos (NEGATIVE) Influenza Type A Antigen Negative (Negative) Influenza Type B Antigen Negative (Negative) SARS-CoV-2 Antigen (Rapid) Negative (NEGATIVE) Blood Gas Specimen Type Venous Blood Gas Sample Site Vbg - n/a Blood Gas Patient Temperature 37.0 Arterial Blood Date Drawn [id number] Marcelo Test N/a Venous Blood pH 7.343 (7.320-7.430) Venous Blood pCO2 at Patient Temp 50.0 mmHg (38.0-54.0) Venous Blood pO2 at Patient Temp 53.2 mmHg (23.0-48.0) Venous Blood HCO3 26.6 mmol/L (22.0-29.0) Venous Blood Base Excess 0.1 mmol/L (-2.0-3.0) Blood Gas Liter Flow 15.00 Blood Gas Modality Mask - nrb FiO2 % 100.0 Test 09/04/25 22:22 Differential Total Cells Counted 100.0 (100) Neutrophils % (Manual) 24 (37.0-80.0) Band Neutrophils % (Manual) 0 Lymphocytes % (Manual) 7 (10.0-50.0) Monocytes % (Manual) 4 (0-12) Eosinophils % (Manual) 63 (0-7) Basophils % (Manual) 0 (0.0-2.0) Metamyelocytes % (manual) 0 Myelocytes % (Manual) 0 Promyelocytes % (Manual) 0 Blast Cells % (Manual) 0 Reactive Lymphocytes 2 Platelet Estimate Adequate D-Dimer, Quantitative 1.51 mg/L FEU (0.0-0.49) Magnesium Level 2.0 mg/dL (1.6-2.6) B-Type Natriuretic Peptide 10.40 pg/mL (0-100) Other Laboratory Tests 09/07/25 05:42 Brief Hx & Hospital Course: History of Present Illness JIMMIE COLON, A 35-year-old male with a history of asthma presented to the ED via EMS for acute shortness of breath and wheezing after recent rhinovirus exposure, unrelieved by multiple home, chills, thick yellow sputum, and EMS breathing treatments, initially hypoxic at 72% on room air and now saturating 93% on 15L/min oxygen. Patient was found to have acute hypoxic respiratory failure, status asthmaticus and likely community-acquired pneumonia and presented with severe sepsis with tachycardia tachypnea and fever. Last exacerbation and hospitalization years aback when he was in teenage. Course of hospitalization: Patient was started on empiric antibiotic therapy, IV steroids, as well as bronchodilators. Patient's white blood cell count improved. Patient has been weaned off of oxygen, saturation remaining greater than 95% on room air. Patient was states he is able to ambulate without any dyspnea, dizziness, in addition to reporting that his overall status has improved dramatically. Patient was agreeable to be discharged home. Patient will be continued on antibiotic therapy with Bactrim DS one tablet b.i.d. x7 days, as well as being prescribed prednisone 40 mg p.o. daily as well as new rescue inhaler with albuterol two puffs every 4 hours as needed for shortness of breaths. He will follow up with the discharge Clinic in one week. All questions answered. Physical examination General: Alert and Oriented x3. No acute distress. Well-nourished. Eyes: EOMI. Anicteric. HENT: Moist mucous membranes. Lungs: Clear to auscultation bilaterally. No accessory muscle use. Cardiovascular: Regular rate and rhythm. No murmur. No JVD. Abdomen: Soft, non-tender and non-distended. No palpable masses. Extremities: No edema. Non-tender. Skin: No rashes or lesions. Warm. Neurologic: No focal neurological deficits. CN II-XII grossly intact, but not individually tested. Psychiatric: Cooperative. Appropriate mood and affect. Total time spent with patient discussing and formulating plan of care: 35 minutes. This medical document was created using an electronic medical record system with [employer] dictation system. Although this document has been carefully reviewed, there may still be some phonetic and typographical errors. These areas are purely typographical due to imperfections of the software programs, and do not reflect any compromise in the patient's medical care. Consults/Reason for consult Pulmonology: Acute respiratory failure Condition at Discharge: Fair Final Diagnosis/Problems List -acute hypoxic respiratory failure -community-acquired pneumonia, bilateral, probable Gram-positive/Gram-negative etiology -asthma with exacerbation -sepsis Discharge Disposition: Home Discharge Instruct/Medications Diet: Regular Activity: No Restrictions, As Tolerated Follow Up/Referral: Discharge Clinic in one week Medications: Albuterol metered-dose inhaler two puffs q.4 hours as needed for shortness of breaths Bactrim DS one tablet b.i.d. x7 days Prednisone 40 mg p.o. daily times seven days Scheduled Albuterol Sulfate (Ventolin Mdi), 90 MCG IN TID, (Reported) Prednisone (Prednisone), 40 MG PO DAILY Sulfamethoxazole W/Trimethopri (Bactrim Ds Tablet), 1 TAB PO BID Scheduled PRN Albuterol Sulfate (Ventolin Mdi), 90 MCG IN Q4HP PRN 36 Discharge Statement: "Patient was advised to return to the ER or call 911 if any headaches, dizziness, shortness of breath, chest pain, abdominal pain, bleeding, fevers, or worsening of medical condition. Patient was counseled about treatment plan, medications, possible side effects, patientverbalized understanding. All questions were answered to the best of my ability. This discharge took greater then 30 minutes in planning, reviewing documentation, counseling the patient, and discussing with other team members." ASSESSMENT ASSESSMENT Assessment Acute hypoxic respiratory failure Date of Service: Sep 07, 2025 Billing Provider: HEMALATHA CARBONE NP Common Visit Codes: 63997-LEH/OBS DISCH DAY >30min HEMALATHA CARBONE NP Sep 07, 2025 11:58
[2025-09-07] MEDS ORDERED: ALBU0.636 IN (18:33)
--- NOTE | 2025-09-07 23:41 | DVHPN2 ---
Subjective DOS: 09/07/2025 Patient seen and examined at bedside. Currently on room air. Overnight events reviewed. Reviewed: Care Plan, H&P, Labs, Medications Changes from previous H/P or p: No Changes General: Per HPI Eyes: No Pain, No Vision change, No Conjunctivae inflammation, No Eyelid inflammation, No Other, No Redness ENT: No Ear pain, No Ear discharge, No Nose pain, No Nose discharge, No Nose congestion, No Mouth pain, No Mouth swelling, No Throat pain, No Throat swelling, No Other Cardiovascular: No Chest Pain; Palpitations; No Orthopnea, No Paroxysmal Noc. Dyspnea, No Edema, No Lt Headedness, No Other Respiratory: Cough; No Dry; Shortness of breath, SOB with excertion, Wheezing; No Hemoptysis, No Pleuritic Pain; Sputum; No Other Gastrointestinal: No Nausea, No Vomiting, No Abdominal Pain, No Diarrhea, No Constipation, No Melena, No Hematochezia, No Other Genitourinary: No Dysuria, No Frequency, No Incontinence, No Hematuria, No Retention, No Other Musculoskeletal: No other, No neck pain, No shoulder pain, No arm pain, No back pain, No hand pain, No leg pain, No foot pain Skin: No Rash, No Lesions, No Jaundice, No Bruising, No Other Objective Vitals Vital Signs Date Time Temp Pulse Resp B/P (MAP) Pulse Ox O2 Delivery O2 Flow Rate FiO2 09/07/25 15:43 87 18 99 09/07/25 15:37 Room Air* 0 21 09/07/25 15:00 36.4 09/07/25 13:00 118/82 (94) Intake/Output Intake and Output 09/07/25 07:00 Intake Total 2000 ml Balance 2000 ml Intake Oral 1150 ml IV Total 850 ml # Voids 6 # Bowel Movements 1 Exam Gen.: Patient lying in bed in no apparent distress. On room air. Head: Normocephalic, atraumatic. Eyes: EOMI/PERRLA. Ears: Normal hearing. Normal anatomy. Neck/trachea: Trachea midline, supple. Nose: Normal external anatomy. Mouth: Moist mucous membranes. Chest: Decreased air entry bilaterally. No wheezing or rhonchi. Cardiovascular: Positive S1, positive S2. Regular rate and rhythm. Abdomen: Positive bowel sounds in all 4 quadrants. Soft, non-tender, non- distended. : Deferred. Rectal: Deferred. Skin: Warm, dry. Intact. Extremities: 2+ radial pulses bilaterally. No lower extremity edema. Neuro: Awake, alert, oriented x3. No gross motor or sensory deficits. Cranial nerves II through XII intact. Gait not assessed. General Appearance: Alert, Oriented X3, Cooperative, No acute distress HEENT: Atraumatic, PERRLA Lungs: Clear to auscultation, Normal air movement Cardiovascular: Normal S1, Normal S2 Abdomen: Normal bowel sounds Musculoskeletal: Normal sensory function, Normal motor function Extremities: No clubbing, No cyanosis Psych/Mental Status: Mental status NL, Mood NL Laboratory Results Laboratory Tests 09/07/25 05:42 Chemistry Test 09/07/25 05:42 Calcium Level 9.1 mg/dL (8.7-10.4) Urinalysis Test 09/05/25 01:00 Urine Color Light-yellow (Yellow) Urine Clarity Clear (Clear) Urine pH 5.5 (5.0-9.0) Urine Specific [place] 1.009 (1.001-1.035) Urine Protein Negative (Negative) Urine Ketones Negative (Negative) Urine Blood Negative /uL (Negative) Urine Nitrite Negative (Negative) Urine Bilirubin Negative (Negative) Urine Urobilinogen Normal mg/dL (Negative) Urine Leukocyte Esterase Negative /uL (Negative) Urine RBC 4 /hpf (0 - 3) Urine Microscopic WBC 5 /HPF (0-3) H Urine Squamous Epithelial Cells Few /hpf (<5) Urine Bacteria None seen /hpf (None Seen) Urine Mucus Few (None Seen) Urine Glucose Normal mg/dL (Normal) Microbiology Microbiology Date/Time Source Procedure Growth Status 09/05/25 03:00 Nose MRSA Screen - Final Complete 09/04/25 22:36 Blood Blood Culture - Preliminary NO GROWTH AFTER 72 HOURS OF INCUBATION. Resulted Assessment/Plan Assessment/Plan Impression: Acute hypoxic respiratory failure secondary to asthma exacerbation Asthma exacerbation Multifocal pneumonia likely Gram-negative Leukocytosis Eosinophilia, eosinophil count 1100 Eosinophilic asthma Lactic acidosis , resolved Elevated D-dimer Marijuana use Events: Improved oxygen requirements Currently on room air No distress. Supplemental oxygen PRN Wheezing almost resolved. Continue bronchodilators Continue IV steroids Continue antibiotics Disposition per hospitalist. Labs and imaging reviewed. Rest of plan as noted below. Plan: Chest x-ray imaging report reviewed. Right upper lung and left upper lung opacities consistent with multifocal pneumonia. Supplemental oxygen PRN (Improved O2 requirements from presentation. Initially was on 15 L/min via non- rebreather) Titrate to keep O2 saturation above 92%. Continue IV steroids Continue bronchodilators Continue antibiotics DVT prophylaxis-Lovenox Prognosis: Guarded given multiple comorbidities. Rest of plan per hospitalist and other consultants. Thank you Dr. Delgadillo for allowing me to participate in this patient's care. Further recommendations will depend on patient's clinical course. Please do not hesitate to contact me if you have any questions or concerns. This medical document was created using an electronic medical record system with [employer] dictation system. Although this document has been carefully reviewed, there may still be some phonetic and typographical errors. These areas are purely typographical due to imperfections of the software programs, and do not reflect any compromise in the patient's medical care. Plan discussed with: Patient, Other (NEELIMA Lincoln) Visit Coding Pulmonary Billing Provider: THEODORE MACE MD Date of Service if different f: Sep 07, 2025 Common Visit Codes: [id number] INP/OBS CARE(HIGH) THEODORE MACE MD Sep 07, 2025 23:41
== END 2025-09-07 15:55 | disposition home or self-care (01) | DRG 720 ==
LOC: EDBD 22:17 → ER 22:17 → OVERFLOW 09-05 01:30 → TELE-CENTR 09-05 03:20
PROVIDERS: ADMIT Nurse Practitioner Acute Care; ATTEND Nurse Practitioner Acute Care
DX: A41.9 Sepsis, unspecified organism (principal); J96.01 Acute respiratory failure with hypoxia; J15.69 Pneumonia due to other Gram-negative bacteria; E87.20 Acidosis, unspecified; J82.83 Eosinophilic asthma; J15.9 Unspecified bacterial pneumonia; R65.20 Severe sepsis without septic shock; J45.901 Unspecified asthma with (acute) exacerbation; Z20.822 Contact with and (suspected) exposure to COVID-19; F12.90 Cannabis use, unspecified, uncomplicated; Z82.5 Family history of asthma and other chronic lower respiratory diseases; Z82.49 Family history of ischemic heart disease and other diseases of the circulatory system; Z83.3 Family history of diabetes mellitus
CPT/HCPCS: 36415; 36600; 71045; 80048; 80053; 80307; 81001; 82805; 83605; 83735; 83880; 84484; 85007; 85025; 85027; 85379; 87040; 87081; 87426; 87804; 93306; 94640; 94644; 99291; G0378; J0692; J2470